=== PATIENT | female | born 1980 | race Caucasian/White ===

== ENCOUNTER 2017-02-27 12:13 | Emergency (ER) | payer OTHER, MEDICAID ==
[~2017-02-27 12:13] MED LIST: ALPR.25 PO; MIRA33504 PO; TYLETAB34 PO
[2017-02-27 12:15] VITALS: BP 142/84; PULSE 101; RESP 16; TEMP 98.2; O2SAT 99
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
[2017-02-27] MEDS ORDERED: CYCLOBENZAPRINE HCL 10 MG TAB PO ONE (13:00)
[2017-02-27] MEDS ORDERED: KETOROLAC TROMETHAMINE 10 MG TAB PO ONE (13:00)
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
[2017-02-27] MEDS ORDERED: IBUP1TAB7 PO (14:01)
[2017-02-27] MEDS ORDERED: CYCL10TA PO (14:01)
[2017-02-27] MEDS ORDERED: ROBA500T PO (14:05)
== END 2017-02-27 14:15 | disposition home or self-care (01) ==
LOC: NEPK 12:13
DX: M54.2 Cervicalgia (principal); M54.9 Dorsalgia, unspecified; R51 Headache; E78.00 Pure hypercholesterolemia, unspecified; M41.9 Scoliosis, unspecified; F17.200 Nicotine dependence, unspecified, uncomplicated; V43.52XA Car driver injured in collision with other type car in traffic accident, initial encounter; Z79.899 Other long term (current) drug therapy
CPT/HCPCS: 72050; 99284